=== PATIENT | female | born 1965 | race African-American/Black ===

== ENCOUNTER 2021-08-05 12:21 | Inpatient (IN) | payer OTHER ==
[~2021-08-05] VITALS: Ht 162.6 cm; Wt 81.8 kg
[2021-08-05 13:39] LABS: BASOPHILS % (AUTO) 0.9 % (0.0-2.0); EOSINOPHILS % (AUTO) 0.3 % (1.0-6.0); HEMATOCRIT 43.1 % (36-46); HEMOGLOBIN 14.3 g/dL (12.0-16.0); LYMPHOCYTES # (AUTO) 0.6 K/uL (1.0-4.8); LYMPHOCYTES % (AUTO) 10.7 % (22.0-44.0); MEAN CORPUSCULAR HEMOGLOBIN 29.3 pg (26.0-34.0); MEAN CORPUSCULAR HGB CONC 33.2 G/dL (31.0-37.0); MEAN CORPUSCULAR VOLUME 88 fL (80-100); MONOCYTES # (AUTO) 0.7 K/uL (0.1-1.0); MONOCYTES % (AUTO) 12.1 % (2.0-9.0); NEUTROPHILS # (AUTO) 4.2 K/uL (1.8-7.7); PLATELET COUNT (AUTO) 226 K/uL (150-450); RED BLOOD CELL COUNT(AUTO) 4.87 MIL/uL (4.00-5.20); RED CELL DISTRIBUTION WIDTH 14.5 % (11.5-14.5)
[2021-08-05 13:44] LABS: COVID AG,FIA SOURCE NASOPHARYNGEAL
[2021-08-05 13:54] LABS: ANION GAP 8 mmol/L (8-16); CALCIUM, TOTAL 9.7 mg/dL (8.8-10.5); CARBON DIOXIDE 30 mmol/L (22-29); CHLORIDE 100 mmol/L (98-107); CREATININE 0.77 mg/dL (0.60-1.30); GLOMERULAR FILTR. RATE CALC > 60 mL/min (>60); GLUCOSE,RANDOM 88 mg/dL (70-110); POTASSIUM 3.3 mmol/L (3.5-5.1); SODIUM SERUM 138 mmol/L (136-145); UREA NITROGEN, BLOOD 9 mg/dL (7-18)
[2021-08-05 14:00] LABS: ALANINE AMINOTRANSFERASE 29 U/L (12-78); ALBUMIN 3.9 g/dL (3.4-5.0); ALKALINE PHOSPHATASE 54 U/L (46-116); ASPARTATE AMINOTRANSFERASE 25 U/L (15-37); BILIRUBIN,TOTAL 0.3 mg/dL (0.1-1.0); LIPASE 98 U/L (73-393); TOTAL PROTEIN, SERUM 8.1 g/dL (6.4-8.2)
[2021-08-05 14:03] LABS: LACTIC ACID 0.6 mmol/L (0.4-2.0)
[2021-08-05 14:11] LABS: APPEARANCE,URINE CLOUDY (CLEAR); BILIRUBIN,URINE NEGATIVE (NEGATIVE); GLUCOSE, URINE (UA) NEGATIVE (NEGATIVE); KETONES,URINE NEGATIVE (NEGATIVE); LEUKOCYTE ESTERASE ,URINE MODERATE (NEGATIVE); NITRATE,URINE NEGATIVE (NEGATIVE); OCCULT BLOOD,URINE NEGATIVE (NEGATIVE); PROTEIN,URINE NEGATIVE (NEGATIVE); UROBILINOGEN,URINE 0.2 mg/dL (<=1.0)
[2021-08-05 14:26] LABS: INFLUENZA TYPE A NEGATIVE FOR TYPE A (NEGATIVE); INFLUENZA TYPE B NEGATIVE FOR TYPE B (NEGATIVE)
[2021-08-05 14:27] LABS: RBC,URINE None Seen /HPF (0-2)
[2021-08-05 14:28] LABS: BACTERIA,URINE Moderate /HPF (None Seen)
[2021-08-05 14:29] LABS: SQUAMOUS EPITHELIAL CELL,UR Many /LPF (None Seen)
[2021-08-05] MEDS ORDERED: ZOLPIDEM TARTRATE 5 MG TABLET PO PRN (15:15)
[2021-08-05] MEDS ORDERED: ACETAMINOPHEN 325 MG TABLET PO PRN (15:15)
[2021-08-05] MEDS ORDERED: ONDANSETRON HCL 4 MG/2 ML VIAL IVP PRN (15:15)
[2021-08-05] MEDS ORDERED: SODIUM CHLORIDE 0.9% 1,000 ML IV ONE (15:15)
[2021-08-05] MEDS ORDERED: ACETAMINOPHEN 500 MG TABLET PO ONE (15:15)
[2021-08-05] MEDS ORDERED: 0.9% SODIUM CHLORIDE 10 ML SYRINGE IVP PRN (15:15)
[2021-08-05] MEDS ORDERED: MAGNESIUM HYDROXIDE SUSPENSION 30 ML UDCUP PO PRN (15:15)
[2021-08-05] MEDS ORDERED: CefTRIAXone 1 GM/DEXTROSE 50 ML IV ONE (15:15)
[2021-08-05] MEDS ORDERED: AmLODIPine BESYLATE 5 MG TABLET PO SCH (15:15)
[2021-08-05] MEDS: ASPIRIN 81 MG CHEWABLE TABLET PO SCH (15:18)
[2021-08-05] MEDS: CloNIDine HCL 0.1 MG TABLET PO PRN (16:03)
[2021-08-05 16:09] LABS: C-REACTIVE PROTEIN QUANT 0.43 mg/dL (0.00-0.30)
[2021-08-05] MEDS ORDERED: ASPIRIN 325 MG TABLET PO ONE (18:30)
[2021-08-05] MEDS ORDERED: SODIUM CHLORIDE 0.9% 1,500 ML IV ONE (18:45)
[2021-08-05] MEDS ORDERED: AmLODIPine BESYLATE 5 MG TABLET PO ONE (18:45)
[2021-08-05] MEDS: HEPARIN SODIUM,PORCINE 5,000 UNITS/ML VIAL SQ SCH (18:56)
[2021-08-05 21:35] VITALS: BP 169/71
[2021-08-05 23:52] VITALS: BP 138/71
[2021-08-06] MEDS: HEPARIN SODIUM,PORCINE 5,000 UNITS/ML VIAL SQ SCH ×4 (00:06→23:20)
[2021-08-06 00:49] LABS: AMPHET/METH SCREEN,URINE NEGATIVE (NEGATIVE); BARBITURATE SCREEN, URINE NEGATIVE (NEGATIVE); BENZODIAZEPINES SCREEN,URINE NEGATIVE (NEGATIVE); CANNABINOID SCREEN,URINE NEGATIVE (NEGATIVE); COCAINE SCREEN,URINE NEGATIVE (NEGATIVE); METHADONE SCREEN, URINE NEGATIVE (NEGATIVE); OPIATE SCREEN,URINE NEGATIVE (NEGATIVE)
[2021-08-06 00:53] LABS: PHENCYCLIDINE SCREEN,URINE NEGATIVE (NEGATIVE)
[2021-08-06 04:28] VITALS: BP 148/90
[2021-08-06 07:42] VITALS: BP 152/88
[2021-08-06] MEDS: AmLODIPine BESYLATE 10 MG TABLET PO SCH (08:15)
[2021-08-06] MEDS: FAMOTIDINE 20 MG TABLET PO SCH (08:15)
[2021-08-06] MEDS: ASPIRIN 81 MG CHEWABLE TABLET PO SCH (08:15)
[2021-08-06] MEDS: ACETAMINOPHEN 325 MG TABLET PO PRN (09:32)
[2021-08-06] MEDS ORDERED: SODIUM CHLORIDE 0.9% 250 ML IV ONE (10:31)
[2021-08-06 11:04] VITALS: BP 146/84
[2021-08-06 15:24] VITALS: BP 142/82
[2021-08-06] MEDS: CefTRIAXone 1 GM/DEXTROSE 50 ML IV SCH (16:30)
[2021-08-06 20:00] VITALS: BP 158/89
[2021-08-06 23:55] VITALS: BP 163/92
[2021-08-07] VITALS (7 sets, daily range): BP systolic 147–165; BP diastolic 67–91
[2021-08-07] MEDS: ASPIRIN 81 MG CHEWABLE TABLET PO SCH (08:18)
[2021-08-07] MEDS: FAMOTIDINE 20 MG TABLET PO SCH (08:19)
[2021-08-07] MEDS: AmLODIPine BESYLATE 10 MG TABLET PO SCH (08:19)
[2021-08-07] MEDS: HEPARIN SODIUM,PORCINE 5,000 UNITS/ML VIAL SQ SCH ×3 (08:19→23:39)
[2021-08-07] MEDS ORDERED: REGADENOSON 0.4 MG/5 ML PF SYRINGE IVP ONE ×2 (10:30→17:55)
[2021-08-07] MEDS ORDERED: SESTAMIBI TC99M/UD ISOTOPE 1 EA INJ INJ ONE ×2 (11:35→14:30)
[2021-08-07 13:03] LABS: ANION GAP 6 mmol/L (8-16); CALCIUM, TOTAL 8.8 mg/dL (8.8-10.5); CARBON DIOXIDE 28 mmol/L (22-29); CHLORIDE 106 mmol/L (98-107); CREATININE 0.75 mg/dL (0.60-1.30); GLOMERULAR FILTR. RATE CALC > 60 mL/min (>60); GLUCOSE,RANDOM 140 mg/dL (70-110); POTASSIUM 4.1 mmol/L (3.5-5.1); SODIUM SERUM 140 mmol/L (136-145); UREA NITROGEN, BLOOD 9 mg/dL (7-18)
[2021-08-07] MEDS: CefTRIAXone 1 GM/DEXTROSE 50 ML IV SCH (15:25)
[2021-08-07] MEDS: CloNIDine HCL 0.1 MG TABLET PO PRN (23:39)
[2021-08-07] MEDS: ACETAMINOPHEN 325 MG TABLET PO PRN (23:39)
[2021-08-08 04:02] VITALS: BP 146/79
[2021-08-08] MEDS ORDERED: SODIUM BICARBONATE 50 MEQ/50 ML VIAL ONE (07:14)
[2021-08-08] MEDS ORDERED: IOHEXOL 300 MG/ML 150 ML VIAL ONE (07:14)
[2021-08-08] MEDS ORDERED: LIDOCAINE/PF 1% 30 ML VIAL ONE (07:14)
[2021-08-08] MEDS ORDERED: IOHEXOL 300 MG/ML 100 ML VIAL ONE (07:14)
[2021-08-08] MEDS ORDERED: IOHEXOL 300 MG/ML 50 ML VIAL ONE (07:14)
[2021-08-08] MEDS ORDERED: HEPARIN SODIUM 1000 UNITS/NS 1,000 ML ONE (07:15)
[2021-08-08 07:37] VITALS: BP 213/100
[2021-08-08] MEDS ORDERED: VERAPAMIL HCL 2.5 MG/ML 2 ML VIAL ONE (07:41)
[2021-08-08] MEDS ORDERED: NITROGLYCERIN 50 MG/D5% WATER 250 ML ONE (07:41)
[2021-08-08] MEDS ORDERED: MIDAZOLAM HCL 2 MG/2 ML VIAL ONE (07:41)
[2021-08-08] MEDS ORDERED: FentaNYL CITRATE PF 100 MCG/2 ML VIAL ONE (07:41)
[2021-08-08] MEDS ORDERED: VERAPAMIL HCL 2.5 MG/ML 2 ML VIAL IARTER ONE (08:00)
[2021-08-08] MEDS ORDERED: MIDAZOLAM HCL 2 MG/2 ML VIAL IVP ONE (08:00)
[2021-08-08] MEDS ORDERED: NITROGLYCERIN/D5W 50 MG/250 ML IV BOTTLE IARTER ONE (08:00)
[2021-08-08] MEDS ORDERED: FentaNYL CITRATE PF 100 MCG/2 ML VIAL IVP ONE (08:00)
[2021-08-08] MEDS ORDERED: IOHEXOL 300 MG/ML 150 ML VIAL IARTER ONE (08:00)
[2021-08-08] MEDS ORDERED: SODIUM CHLORIDE 0.9% 500 ML IV ONE (08:00)
[2021-08-08] MEDS ORDERED: HEPARIN SODIUM 1000 UNITS/NS 1,000 ML IARTER ONE (08:00)
[2021-08-08] MEDS: HEPARIN SODIUM,PORCINE 5,000 UNITS/ML VIAL SQ SCH ×2 (08:00→16:00)
[2021-08-08] MEDS ORDERED: LIDOCAINE 1% 30 ML/SOD BICARB 8.4% 4 ML SQ ONE (08:00)
[2021-08-08] MEDS ORDERED: HydrALAZINE HCL 20 MG/ML VIAL ONE (08:06)
[2021-08-08] MEDS ORDERED: HydrALAZINE HCL 20 MG/ML VIAL IVP ONE (08:15)
[2021-08-08] MEDS ORDERED: HEPARIN SODIUM,PORCINE 5,000 UNITS/ML VIAL IVP ONE (08:30)
[2021-08-08 08:31] VITALS: BP 176/71
[2021-08-08] MEDS ORDERED: LISINOPRIL 20 MG TABLET PO SCH (09:00)
[2021-08-08 09:06] VITALS: BP 158/68
[2021-08-08] MEDS: FAMOTIDINE 20 MG TABLET PO SCH (09:11)
[2021-08-08] MEDS: AmLODIPine BESYLATE 10 MG TABLET PO SCH (09:11)
[2021-08-08] MEDS: ASPIRIN 81 MG CHEWABLE TABLET PO SCH (09:11)
[2021-08-08 11:24] VITALS: BP 139/74
[2021-08-08] MEDS: CefTRIAXone 1 GM/DEXTROSE 50 ML IV SCH (16:00)
[2021-08-08] MEDS ORDERED: ATOR40TA28 PO (17:36)
[2021-08-08] MEDS ORDERED: ASPI-1227 PO (17:36)
[2021-08-08] MEDS ORDERED: AMLO-258 PO (17:37)
[2021-08-08] MEDS ORDERED: LISI-894 PO (17:38)
[2021-08-08] MEDS ORDERED: CEPH500C3 PO (17:38)
[2021-08-08 17:50] LABS: COVID AG,FIA SOURCE NASOPHARYNGEAL
[2021-08-08 18:46] VITALS: BP 139/74
[2021-08-08] MEDS ORDERED: ATORVASTATIN CALCIUM 40 MG TABLET PO SCH (21:00)
== END 2021-08-08 21:23 | disposition home or self-care (01) | DRG 871 ==
LOC: EMS 12:26 → 5S 15:07
PROVIDERS: ADMIT Internal Medicine; ATTEND Internal Medicine
PROC: 4A02XM4 Measurement of Cardiac Total Activity, External Approach (ICD-10-PCS; 2021-08-07)
PROC: 3E073KZ Introduction of Other Diagnostic Substance into Coronary Artery, Percutaneous Approach (ICD-10-PCS; 2021-08-07)
PROC: 4A023N7 Measurement of Cardiac Sampling and Pressure, Left Heart, Percutaneous Approach (ICD-10-PCS; principal; 2021-08-08)
PROC: B2111ZZ Fluoroscopy of Multiple Coronary Arteries using Low Osmolar Contrast (ICD-10-PCS; 2021-08-08)
PROC: B2151ZZ Fluoroscopy of Left Heart using Low Osmolar Contrast (ICD-10-PCS; 2021-08-08)
DX: A41.9 Sepsis, unspecified organism (principal); U07.1 COVID-19; I16.1 Hypertensive emergency; N39.0 Urinary tract infection, site not specified; I25.10 Atherosclerotic heart disease of native coronary artery without angina pectoris; R77.8 Other specified abnormalities of plasma proteins; R07.89 Other chest pain; I10 Essential (primary) hypertension; F17.210 Nicotine dependence, cigarettes, uncomplicated; E87.6 Hypokalemia; Z79.82 Long term (current) use of aspirin; Z79.899 Other long term (current) drug therapy; Z72.89 Other problems related to lifestyle
CPT/HCPCS: 71045; 78452; 80048; 80053; 81001; 83605; 83690; 84484; 85025; 85379; 86140; 87040; 87086; 87804; 93005; 93017; 93306; 99285; A9500; J0360; J0696; J1644; J2250; J2785; J3010; J3490; J7030; J7050; Q9967; 36415-L1; 36415-TC; Z7610